=== PATIENT | female | born 1965 | race African-American/Black ===

== ENCOUNTER 2024-02-22 04:49 | Day surgery (SDC) | payer OTHER ==
[2024-02-15 12:34] VITALS: BMI 27.8
[2024-02-22 11:03] VITALS: TEMP 98.2
[2024-02-22 11:22] VITALS: RESP 20
[2024-02-22 11:24] VITALS: BP 163/81
[2024-02-22 11:31] VITALS: PULSE 49
== END 2024-02-22 11:52 | disposition home or self-care (01) ==
LOC: JASU-ENDO 04:49
PROVIDERS: ATTEND Internal Medicine Gastroenterology
PROC: 0DBN8ZX Excision of Sigmoid Colon, Via Natural or Artificial Opening Endoscopic, Diagnostic (ICD-10-PCS; principal; 2024-02-22 10:00)
DX: Z12.11 Encounter for screening for malignant neoplasm of colon (principal); Z86.010 Personal history of colon polyps; Z80.0 Family history of malignant neoplasm of digestive organs; D12.5 Benign neoplasm of sigmoid colon; K57.30 Diverticulosis of large intestine without perforation or abscess without bleeding
CPT/HCPCS: 88305-TC